=== PATIENT | female | born 1950 | race Caucasian/White ===

== ENCOUNTER 2018-12-12 17:22 | Inpatient (IN) | payer MEDICARE, MEDICAID ==
[~2018-12-12] VITALS: Ht 167.6 cm; Wt 63.0 kg
--- NOTE | 2018-12-12 17:45 | NUR ---
pt refuses ekg and cxr.
--- NOTE | 2018-12-12 17:45 | NUR ---
No information regarding current home medications received in transfer paperwork, pt unable to provide information.
--- NOTE | 2018-12-12 17:50 | NUR ---
pt agitated and yelling inspite of comfort measures provided.
[2018-12-12] MEDS ORDERED: OLANZAPINE 10 MG VIAL IM ONE ×2 (18:00→18:04)
--- NOTE | 2018-12-12 18:37 | NUR ---
pt transfered to [facility]. pt talking on the way going to [facility].
[2018-12-12] MEDS ORDERED: MAG HYDROX/AL HYDROX/SIMETH 30 ML LIQUID UDC PO PRN (19:45)
[2018-12-12] MEDS ORDERED: MAGNESIUM HYDROXIDE 30 ML LIQUID UDC PO PRN (19:45)
[2018-12-12] MEDS ORDERED: BLOOD SUGAR DIAGNOSTIC 1 EACH STRIP VI ONE (19:45)
[2018-12-12] MEDS ORDERED: LEVO25TA2 PO (20:19)
[2018-12-12] MEDS ORDERED: QUET25TA PO (20:19)
[2018-12-12] MEDS ORDERED: QUET100T PO (20:19)
[2018-12-12] MEDS ORDERED: HYDR-3326 PO (20:19)
[2018-12-12] MEDS ORDERED: ESCI5TAB PO (20:19)
[2018-12-12] MEDS ORDERED: LEVE500T9 PO (20:19)
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
[2018-12-13] MEDS ORDERED: HYDROCODONE/APAP 5-325MG TABLET PO SCH
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
[2018-12-13] MEDS ORDERED: OLANZAPINE 10 MG VIAL IM STA (04:30)
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
--- NOTE | 2018-12-13 04:45 | NUR ---
GPS: Zyprexa 10 mg given IM as ordered on right buttocks area and guero.well. Re-directed prn. Safe environment provided. Will continue to monitor behavior.
[2018-12-13 05:42] LABS: *BILIRUBIN,URIN NEGATIVE (NEGATIVE); *BLOOD, URINE NEGATIVE (NEGATIVE); *CLARITY,URINE CLEAR (CLEAR); *COLOR,URINE YELLOW (YELLOW); *KETONES,URINE TRACE (NEGATIVE); *UROBILINOGEN,URINE 0.2 E.U./dl (NORMAL); LEUKOCYTE ESTERASE ,URINE TRACE (NEGATIVE); NITRITE, URINE NEGATIVE (NEGATIVE); UGLUCOSE NEGATIVE (NEGATIVE)
[2018-12-13 05:46] LABS: RBC,URINE 0-3 /HPF (0-3)
[2018-12-13 05:47] LABS: BACTERIA,URINE FEW /HPF (NONE SEEN); SQUAMOUS EPITHELIAL CELL,UR MODERATE /HPF (NONE SEEN)
[2018-12-13] MEDS: LEVOTHYROXINE SODIUM 25 MCG TABLET PO SCH (06:34)
--- NOTE | 2018-12-13 06:42 | NUR ---
GPS: Pt.refused scheduled blood drawing this a.m. despite explanation of importance. Pt.is easily irritable when being encouraged. Will continue to re-direct prn.
[2018-12-13 07:56] VITALS: BP 108/73
[2018-12-13] MEDS ORDERED: diphenhydrAMINE 50 MG/1 ML VIAL IM ONE (08:45)
[2018-12-13] MEDS ORDERED: HALOPERIDOL LACTATE 5 MG/1 ML VIAL IM ONE (08:45)
--- NOTE | 2018-12-13 08:45 | NUR ---
GPS: Nursing Notes: Chemical Restraint: Patient is responding to her name, poor anger management, resistant with nursing care, verbal abusive toward the psychiatrist, posturing toward staff, strike out at staff, overly disruptive by shouting, screaming, restless behavior, unable to be redirected, Dr. Chery ordered: Haldol 5mg IM and Benadryl 25mg IM X1 STAT for severe agitated behavior, continue to monitor for safety, continue with treatment plan.
[2018-12-13] MEDS: LEVETIRACETAM 500 MG TABLET PO SCH ×3 (08:46→20:04)
--- NOTE | 2018-12-13 09:15 | NUR ---
GPS: Nursing Notes: Reassessment of Chemical Restraint: Patient became calm, but continue to be resistant with nursing care, following staff directions, medication IM's were effective, R=18, continue to monitor for safety, continue with treatment plan.
[2018-12-13] MEDS: LORAZEPAM 1 MG TABLET PO PRN ×2 (09:54→20:14)
[2018-12-13] MEDS: BENZTROPINE MESYLATE 0.5 MG TABLET PO SCH ×2 (13:00→17:00)
[2018-12-13] MEDS: HALOPERIDOL 2 MG TABLET PO SCH ×2 (13:00→17:00)
[2018-12-13] MEDS ORDERED: DEXTROSE 50% 50 ML DISP.SYRIN IV PRN (14:15)
--- NOTE | 2018-12-13 14:15 | NUR ---
Initial Discharge Note: Patient is a 67 year old female who currently resides at [facility] [[address] [place] [address] ]. Per Social Media Senior Associate Sofi, patient will not be welcomed back due to patient representing a danger to others. Per Sofi, [facility] will aid in finding another placement for this patient. Metal Tile Setter will continue to meet with patient, and collaborate with Cirilo on a safe and proper discharge.
[2018-12-13] MEDS: BLOOD SUGAR DIAGNOSTIC 1 EACH STRIP VI SCH ×2 (16:30→20:04)
[2018-12-13] MEDS: CEphaleXIN 500 MG CAPSULE PO SCH (17:00)
[2018-12-13 20:14] VITALS: BP 101/60
[2018-12-14] MEDS: BLOOD SUGAR DIAGNOSTIC 1 EACH STRIP VI SCH ×4 (06:42→21:00)
[2018-12-14] MEDS: LEVOTHYROXINE SODIUM 25 MCG TABLET PO SCH (06:42)
[2018-12-14] MEDS: LORAZEPAM 1 MG TABLET PO PRN (07:48)
[2018-12-14] MEDS: HALOPERIDOL 2 MG TABLET PO SCH ×3 (08:20→16:08)
[2018-12-14] MEDS: BENZTROPINE MESYLATE 0.5 MG TABLET PO SCH ×3 (08:21→16:08)
[2018-12-14] MEDS: LEVETIRACETAM 500 MG TABLET PO SCH ×2 (08:21→21:00)
[2018-12-14] MEDS: CEphaleXIN 500 MG CAPSULE PO SCH ×2 (08:21→16:07)
[2018-12-14] MEDS ORDERED: diphenhydrAMINE 50 MG/1 ML VIAL IM ONE (10:00)
[2018-12-14] MEDS ORDERED: HALOPERIDOL LACTATE 5 MG/1 ML VIAL IM ONE (10:00)
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
[2018-12-14] MEDS ORDERED: OLANZAPINE 10 MG VIAL IM ONE (16:30)
[2018-12-14] MEDS ORDERED: LORAZEPAM 2 MG/1 ML VIAL IM ONE (16:30)
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
--- NOTE | 2018-12-14 16:44 | NUR ---
PATIENT NOTED WITH AGGRESSION,AND COMBATIVE BEHAVIOR, TALKING LOUD IN THE HALLWAY, GRANDIOSE, NOT REFRACTABLE, CONTINUE WITH BEHAVIORS, CHARGE NURSE OBTAINED THE ORDER FROM DR ESTRADA, WITH ORDER TO GIVE ATIVAN 1MG AND ZYPREXA MG IM, ADMINISTERED, PATIENT TOLERATED WELL.
[2018-12-14] MEDS: CLONAZEPAM 0.5 MG TABLET PO SCH (17:27)
--- NOTE | 2018-12-14 22:00 | NUR ---
received to care, lying in bed, with eyes closed, refusing to interact, when engaged. she also refused vital signs, blood sugar check, and bedtime medications. as of 2200, she appears to be asleep. no distress noted. will continue to monitor closely.
--- NOTE | 2018-12-15 06:00 | NUR ---
slept 9 hours. continues to sleep. no distress noted.
[2018-12-15] MEDS ORDERED: chlorproMAZINE 50 MG/2 ML AMPUL IM STA (07:00)
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
[2018-12-15] MEDS: BLOOD SUGAR DIAGNOSTIC 1 EACH STRIP VI SCH ×4 (07:30→21:00)
[2018-12-15] MEDS: LEVOTHYROXINE SODIUM 25 MCG TABLET PO SCH (07:30)
--- NOTE | 2018-12-15 07:30 | NUR ---
appears to be asleep. report given to oncoming shift.
[2018-12-15] MEDS: CEphaleXIN 500 MG CAPSULE PO SCH ×3 (09:00→16:54)
[2018-12-15] MEDS: LEVETIRACETAM 500 MG TABLET PO SCH ×4 (09:00→23:55)
[2018-12-15] MEDS: CLONAZEPAM 0.5 MG TABLET PO SCH ×4 (09:00→16:55)
[2018-12-15] MEDS: BENZTROPINE MESYLATE 0.5 MG TABLET PO SCH ×4 (09:00→16:54)
[2018-12-15 09:59] VITALS: BP 97/66
--- NOTE | 2018-12-15 10:45 | NUR ---
Gps/Model Dresser- Patient awake, routine am meds. was re offered, , patient attempted to take meds. staring at the meds. cup, then suddenly claimed "i dont want to take any medicine from you" patient mubles speech was incoherent. Patient grabbed staff arm, starting to squeezed hard, instructed to let go of staff arm .Loud starting to talk incoherently.Will attempt to re -offer routine am medications. Continue to monitor behavior, safety emphasized.
[2018-12-15] MEDS ORDERED: HALOPERIDOL 2 MG TABLET PO SCH (13:00)
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
[2018-12-15] MEDS ORDERED: chlorproMAZINE 50 MG/2 ML AMPUL IM ONE ×2 (13:15→20:15)
[2018-12-15 16:13] VITALS: BP 106/69
[2018-12-15] MEDS: HALOPERIDOL 5 MG TABLET PO SCH (16:54)
--- NOTE | 2018-12-15 16:55 | NUR ---
Gps/Baker Bread- Yelling spells noted, gets loud, making some weird noise. She tend to covers her head , discouraged from doing so, pt. gets angry and irritable. Continue to monitor behavior. Patient continue to refused routine meds. re-offered couple of times, refused .
--- NOTE | 2018-12-15 17:07 | NUR ---
Gps/Admeasurer- Patient is not to have any roommate r/t her violent/aggressive behavior.Staff are well informed.
--- NOTE | 2018-12-15 18:28 | NUR ---
Gps/Can Tester Conitnue to monitor behavior, remains to have on and off yelling spells for no reasons, talking to herself.
[2018-12-15] MEDS ORDERED: diphenhydrAMINE 50 MG/1 ML VIAL IM ONE ×2 (20:15→20:45)
[2018-12-15] MEDS ORDERED: HALOPERIDOL LACTATE 5 MG/1 ML VIAL IM ONE (20:45)
[2018-12-15] MEDS ORDERED: LORAZEPAM 2 MG/1 ML VIAL IM ONE (20:45)
--- NOTE | 2018-12-15 23:00 | NUR ---
received to care, lying in bed, asleep, with covers over her head. she came out around 1999, yelling obscenities, and threatening staff. intrusive with peers, in their room. was difficult to redirect. she continued to escalate, to the point that she was posturing with fists, and making threats of violence. Dr Chery was paged, and she received an IM injection of haldol 5 mg/ ativan 2 mg/ benedryl 25 mg, at 2042. she was compliant with injection. she calmed down after about an hour, and now appears to be asleep. continues to yell out intermittently. will continue to monitor closely.
[2018-12-15] MEDS: LORAZEPAM 1 MG TABLET PO PRN (23:55)
--- NOTE | 2018-12-15 23:55 | NUR ---
pt refused all medications this evening. she is now awake, requesting "something to calm me down". she wa sgiven PRN ativan (PO), and her scheduled dose of keppra, which was due at 2100. will continue to monitor closely.
--- NOTE | 2018-12-16 00:45 | NUR ---
appears to be asleep. no distress noted.
[2018-12-16] MEDS: HYDROCODONE/APAP 5-325MG TABLET PO PRN (04:49)
--- NOTE | 2018-12-16 06:00 | NUR ---
slept 3.5 hours. continues to sleep intermittently.
--- NOTE | 2018-12-16 06:30 | NUR ---
is now yelling at desk. became aggressive, but was redirected back to room. currently talking to self.
[2018-12-16] MEDS: LEVOTHYROXINE SODIUM 25 MCG TABLET PO SCH (06:48)
[2018-12-16] MEDS: BLOOD SUGAR DIAGNOSTIC 1 EACH STRIP VI SCH ×4 (06:48→21:00)
[2018-12-16] MEDS: CEphaleXIN 500 MG CAPSULE PO SCH ×2 (08:21→17:00)
[2018-12-16] MEDS: LEVETIRACETAM 500 MG TABLET PO SCH ×2 (08:21→21:00)
[2018-12-16] MEDS: HALOPERIDOL 5 MG TABLET PO SCH ×3 (08:21→17:00)
[2018-12-16] MEDS: CLONAZEPAM 0.5 MG TABLET PO SCH ×3 (08:21→17:00)
[2018-12-16] MEDS: BENZTROPINE MESYLATE 0.5 MG TABLET PO SCH ×3 (08:22→17:00)
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
--- NOTE | 2018-12-16 15:07 | NUR ---
Discharge planning: Hearing Aid Specialist faxed updated patient clinicals to referring facility - [facility] [[address] [place] [address]; ] ATTN : Analysis Engineer Sofi as facility has agreed to find alternate placement for patient upon discharge.
--- NOTE | 2018-12-16 18:13 | NUR ---
Gps/Manager Food Safety- Occ. nuria noted coming from patient's room , speech confused incoherent, labile mood, appeared to be mad at some . Continue to monitor behavior.
--- NOTE | 2018-12-16 20:00 | NUR ---
RECEIVED PATIENT IN HER ROOM, SHE IS NOTED ASLEEP BUT EASILY AROUSABLE. SHE IS NOTED EASILY IRRITABLE, REFUSING TO ANSWER ANY QUESTION, SARCASTIC, AND VERBALLY ABUSIVE. SHE ALSO REFUSED V/S. SAFETY AND FALL PRECAUTION IN PLACE. WILL CONTINUE TO MONITOR.
--- NOTE | 2018-12-16 22:00 | NUR ---
PATIENT REFUSED ALL HER MEDICATIONS AND ACCUCHECK. SHE CONTINUE EASILY IRRITABLE AND RESPONDING TO INTERNAL STIMULI. WILL CONTINUE TO MONITOR CLOSELY.
--- NOTE | 2018-12-16 23:15 | NUR ---
PATIENT NOTED WALKING THE HALLWAY, SHE WAS OBSERVED TALKING TO HERSELF. AFTER A FEW MINUTES, SHE WENT BACK TO HER ROOM AND CONTINUE TALKING TO HERSELF. WILL CONTINUE TO MONITOR.
[2018-12-17] MEDS: LEVOTHYROXINE SODIUM 25 MCG TABLET PO SCH (07:13)
[2018-12-17] MEDS: BLOOD SUGAR DIAGNOSTIC 1 EACH STRIP VI SCH ×4 (07:13→21:00)
[2018-12-17] MEDS: CLONAZEPAM 0.5 MG TABLET PO SCH ×3 (09:00→17:00)
[2018-12-17] MEDS: HALOPERIDOL 5 MG TABLET PO SCH ×3 (09:00→17:00)
[2018-12-17] MEDS: CEphaleXIN 500 MG CAPSULE PO SCH ×2 (09:00→17:00)
[2018-12-17] MEDS: BENZTROPINE MESYLATE 0.5 MG TABLET PO SCH ×3 (09:00→17:00)
[2018-12-17] MEDS: LEVETIRACETAM 500 MG TABLET PO SCH ×2 (09:00→21:00)
[2018-12-17] MEDS ORDERED: HALOPERIDOL LACTATE 5 MG/1 ML VIAL IM STA (12:45)
[2018-12-17] MEDS ORDERED: BENZTROPINE MESYLATE 2 MG/2 ML AMPUL IM ONE (12:45)
[2018-12-17] MEDS ORDERED: BENZTROPINE MESYLATE 2 MG/2 ML AMPUL IM SCH (12:45)
[2018-12-17] MEDS ORDERED: LORAZEPAM 2 MG/1 ML VIAL IM ONE (12:45)
--- NOTE | 2018-12-17 13:00 | NUR ---
Gps/Crude Oil Driver-Loud, yelling, extremely agitated, speech incoherent, confused, disruptive behavior, violent behavior ,unable to contract for safety, spitting . Dr Cruz in to see patient, orders received.
--- NOTE | 2018-12-17 17:57 | NUR ---
Gps/Resource Management Planner- Patient had been quiet after receiving her PRN medications. Noted she covered her head from top to bottom w/ her blanket . Continue to monitor behavior.
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
--- NOTE | 2018-12-17 22:00 | NUR ---
PATIENT REFUSED ACCUCHECKS. REFUSED ALL HER QHS MEDICATIONS AND V/S. MULTIPLE REDIRECTION GIVEN. HOWEVER, INEFFECTIVE. SHE IS NOW IN HER ROOM, APPEARS TO BE ASLEEP. WILL CONTINUE TO MONITOR.
[2018-12-18] MEDS: LEVOTHYROXINE SODIUM 25 MCG TABLET PO SCH (07:30)
[2018-12-18] MEDS: BLOOD SUGAR DIAGNOSTIC 1 EACH STRIP VI SCH ×4 (07:30→20:14)
[2018-12-18] MEDS ORDERED: BENZTROPINE MESYLATE 2 MG/2 ML AMPUL IM ONE (08:30)
[2018-12-18] MEDS ORDERED: HALOPERIDOL LACTATE 5 MG/1 ML VIAL IM ONE (08:30)
[2018-12-18] MEDS ORDERED: LORAZEPAM 2 MG/1 ML VIAL IM ONE (08:30)
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
[2018-12-18] MEDS: HALOPERIDOL 5 MG TABLET PO SCH ×4 (09:00→17:00)
[2018-12-18] MEDS: CEphaleXIN 500 MG CAPSULE PO SCH ×2 (09:00→17:00)
[2018-12-18] MEDS: BENZTROPINE MESYLATE 0.5 MG TABLET PO SCH ×4 (09:00→17:00)
[2018-12-18] MEDS: CLONAZEPAM 0.5 MG TABLET PO SCH ×4 (09:00→17:00)
[2018-12-18] MEDS: LEVETIRACETAM 500 MG TABLET PO SCH ×2 (09:00→20:14)
--- NOTE | 2018-12-18 14:52 | NUR ---
Gps/Auto Bumper Straightener- Came out to the Nurses station asking to give her routine medications . she did not take earlier today.Administered routine meds. due this pm , meds. she originally refused .
[2018-12-18] MEDS: HYDROCODONE/APAP 5-325MG TABLET PO PRN (16:01)
--- NOTE | 2018-12-18 20:15 | NUR ---
GPS: Pt.refused bedtime meds.and accuchecks despite explanation of importance. Easily irritable when being persuaded. Safety emphasized. Will continue to monitor.
[2018-12-18] MEDS: LORAZEPAM 1 MG TABLET PO PRN (23:53)
--- NOTE | 2018-12-18 23:55 | NUR ---
GPS: Pt.awake at this time and starting to cry and yell. Pt.is talking to self and starting to get agitated. Ativan 1mg PO offered and taken. Re-directed prn.
[2018-12-19] MEDS: ZOLPIDEM 5 MG TABLET PO PRN (00:45)
--- NOTE | 2018-12-19 00:45 | NUR ---
GPS: Pt.still awake at this time and requested something to help her sleep and some snacks. Ambien 5mg given PO for insomnia. Will monitor effectiveness.
--- NOTE | 2018-12-19 01:58 | NUR ---
GPS: Asleep at this time. In no form of distress noted. Will continue to monitor.
[2018-12-19] MEDS: LORAZEPAM 1 MG TABLET PO PRN ×2 (05:56→13:29)
[2018-12-19] MEDS: BLOOD SUGAR DIAGNOSTIC 1 EACH STRIP VI SCH ×4 (06:33→21:00)
[2018-12-19] MEDS: LEVOTHYROXINE SODIUM 25 MCG TABLET PO SCH (06:33)
[2018-12-19] MEDS: CEphaleXIN 500 MG CAPSULE PO SCH (09:00)
[2018-12-19] MEDS: CLONAZEPAM 0.5 MG TABLET PO SCH ×3 (09:00→17:00)
[2018-12-19] MEDS: BENZTROPINE MESYLATE 0.5 MG TABLET PO SCH ×3 (09:00→17:00)
[2018-12-19] MEDS: LEVETIRACETAM 500 MG TABLET PO SCH ×3 (09:00→21:00)
[2018-12-19] MEDS: HALOPERIDOL 5 MG TABLET PO SCH ×3 (09:00→17:00)
--- NOTE | 2018-12-19 10:58 | NUR ---
Discharge Planning: Pharmacy Teacher contacted referring facility - [facility] [ [address] [place] [address]; ] and spoke with Sofi, Base Brander. This keno writer informed that filed Riese petition for patient this morning. Per Sofi, once patient is closer to discharge, they will assist with alternate placement for patient among their sister facilities.
[2018-12-19] MEDS ORDERED: diphenhydrAMINE 50 MG/1 ML VIAL IM ONE (12:00)
[2018-12-19] MEDS ORDERED: LORAZEPAM 2 MG/1 ML VIAL IM ONE (12:00)
[2018-12-19] MEDS ORDERED: HALOPERIDOL LACTATE 5 MG/1 ML VIAL IM ONE (12:00)
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
--- NOTE | 2018-12-19 12:36 | NUR ---
GPS: Nursing Notes: Reassessment of Chemical Restraint: Patient became calmed, less screaming, but gets easily irritable when redirected, continue to monitor for safety, medication IM's were effective, R=20, continue with treatment plan.
[2018-12-19] MEDS: HYDROCODONE/APAP 5-325MG TABLET PO PRN (13:55)
[2018-12-19 16:11] VITALS: BP 142/88
[2018-12-19] MEDS ORDERED: chlorproMAZINE 50 MG/2 ML AMPUL IM ONE (16:15)
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
--- NOTE | 2018-12-19 16:58 | NUR ---
GPS: Nursing Notes: Reassessment of Chemical Restraint: Patient is awake and responding to her name, patient became calm, less shouting, following staff directions, medication IM was effective, R=20, continue to monitor for safety, continue with treatment plan.
[2018-12-20] MEDS: LORAZEPAM 1 MG TABLET PO PRN ×2 (00:27→13:45)
[2018-12-20] MEDS: LEVETIRACETAM 500 MG TABLET PO SCH ×3 (00:27→21:00)
--- NOTE | 2018-12-20 00:27 | NUR ---
pt is now awake, and yelling to self. PRN ativan was given, along with her bedtime dose of keppra. continues to refuse vital signs. currently eating a snack in her room, quietly. will continue to monitor closely.
--- NOTE | 2018-12-20 01:30 | NUR ---
appears to be asleep.
[2018-12-20] MEDS: HYDROCODONE/APAP 5-325MG TABLET PO PRN ×3 (03:19→23:19)
--- NOTE | 2018-12-20 03:19 | NUR ---
pt is now yelling. she c/o lower back pain. PRN norco was given. will continue to monitor closely.
--- NOTE | 2018-12-20 04:30 | NUR ---
appears to be asleep.
--- NOTE | 2018-12-20 06:00 | NUR ---
slept 2.5 hours, total. continues to sleep. no distress noted.
[2018-12-20] MEDS: LEVOTHYROXINE SODIUM 25 MCG TABLET PO SCH (06:30)
[2018-12-20] MEDS: BLOOD SUGAR DIAGNOSTIC 1 EACH STRIP VI SCH ×4 (06:30→21:00)
--- NOTE | 2018-12-20 06:30 | NUR ---
continues to refuse accu checks. pt remains asymptomatic.
[2018-12-20 07:30] VITALS: BP 99/59
[2018-12-20] MEDS: CLONAZEPAM 0.5 MG TABLET PO SCH ×4 (09:00→16:43)
[2018-12-20] MEDS: BENZTROPINE MESYLATE 0.5 MG TABLET PO SCH ×4 (09:00→16:40)
[2018-12-20] MEDS: HALOPERIDOL 5 MG TABLET PO SCH ×4 (09:00→16:41)
--- NOTE | 2018-12-20 13:33 | NUR ---
Kaci hearing on 05/01/18 at 0930 am , Dr. Chery notified and aware.
--- NOTE | 2018-12-20 14:12 | NUR ---
FIREARMS REPORT: Final Inspector And Tester completed and submitted a [facility] firearms report for [address] Disability certification. A copy of report has been placed in patient chart.
--- NOTE | 2018-12-20 14:15 | NUR ---
FIREARMS REPORT: Director Of Events completed and submitted a [facility] firearms report for 5150 DTO certification. A copy of report has been placed in patient chart.
--- NOTE | 2018-12-20 22:00 | NUR ---
received to care, lying in bed, talking to self. refused all medications, including blood pressure check. as of 2200, she remains asleep, but talking intermittently. will continue to monitor closely.
[2018-12-20 22:19] VITALS: BP 113/74
[2018-12-20] MEDS: ZOLPIDEM 5 MG TABLET PO PRN (23:19)
--- NOTE | 2018-12-20 23:19 | NUR ---
pt is now agitated, and yelling at nurses station. PRN ale was given. she was redirected back to room.
[2018-12-21] MEDS: LORAZEPAM 1 MG TABLET PO PRN ×2 (00:17→20:45)
--- NOTE | 2018-12-21 00:17 | NUR ---
remains agitated and difficult to redirect. becomes verbally abusive, when engaged. PRN ativan was given. she went back to her room, after security arrived. will continue to monitor closely.
--- NOTE | 2018-12-21 01:30 | NUR ---
appears to be asleep, but yells out intermittently.
--- NOTE | 2018-12-21 05:40 | NUR ---
slept 4 hours, total. continues to sleep. no distress noted.
[2018-12-21] MEDS: BLOOD SUGAR DIAGNOSTIC 1 EACH STRIP VI SCH ×4 (06:57→20:16)
[2018-12-21] MEDS: LEVOTHYROXINE SODIUM 25 MCG TABLET PO SCH (06:57)
[2018-12-21 07:30] VITALS: BP 107/72
[2018-12-21] MEDS: CLONAZEPAM 0.5 MG TABLET PO SCH ×3 (08:30→16:13)
[2018-12-21] MEDS: LEVETIRACETAM 500 MG TABLET PO SCH ×2 (08:30→20:22)
[2018-12-21] MEDS: HALOPERIDOL 5 MG TABLET PO SCH ×3 (08:32→16:13)
[2018-12-21] MEDS: BENZTROPINE MESYLATE 0.5 MG TABLET PO SCH ×3 (08:32→16:13)
[2018-12-21] MEDS ORDERED: HALOPERIDOL LACTATE 5 MG/1 ML VIAL IM PRN (10:15)
[2018-12-21] MEDS ORDERED: diphenhydrAMINE 50 MG/1 ML VIAL IM PRN (10:15)
[2018-12-21] MEDS: INSULIN REGULAR, HUMAN 300 UNIT/3 ML VIAL SQ PRN ×2 (11:44→20:17)
[2018-12-21] MEDS: HYDROCODONE/APAP 5-325MG TABLET PO PRN ×2 (11:47→21:29)
[2018-12-21] MEDS: ACETAMINOPHEN 325 MG TABLET PO PRN (15:31)
--- NOTE | 2018-12-21 18:24 | NUR ---
ON REISE , TAKING HER ORAL MEDICATION, PATIENT COMPLIANT
--- NOTE | 2018-12-21 20:00 | NUR ---
RECEIVED PATIENT AMBULATING IN THE HALLWAY. AOX1-2. PATIENT CAN GET EASILY ANXIOUS AND AGITATED, BECOMES HYPERVERBAL AND VERBALLY ABUSIVE, ALTHOUGH COOPERATIVE WITH CARE. DENIES SI/HI. REFUSED VS. CONTINUE TO MONITOR.
[2018-12-21] MEDS: ZOLPIDEM 5 MG TABLET PO PRN (21:50)
[2018-12-22] MEDS: HYDROCODONE/APAP 5-325MG TABLET PO PRN ×2 (05:53→15:59)
[2018-12-22] MEDS: BLOOD SUGAR DIAGNOSTIC 1 EACH STRIP VI SCH ×4 (06:35→20:29)
[2018-12-22] MEDS: LEVOTHYROXINE SODIUM 25 MCG TABLET PO SCH (06:35)
--- NOTE | 2018-12-22 07:30 | NUR ---
RECIEVED LYING IN BED, SOUND ASLEEP. APPEARS CALM AND QUITE.
[2018-12-22 08:17] VITALS: BP 95/63
[2018-12-22] MEDS: INSULIN REGULAR, HUMAN 300 UNIT/3 ML VIAL SQ PRN ×3 (08:24→20:40)
[2018-12-22] MEDS: BENZTROPINE MESYLATE 0.5 MG TABLET PO SCH ×3 (08:26→17:40)
[2018-12-22] MEDS: HALOPERIDOL 5 MG TABLET PO SCH ×3 (08:26→17:40)
[2018-12-22] MEDS: LEVETIRACETAM 500 MG TABLET PO SCH ×2 (08:26→20:22)
[2018-12-22] MEDS: CLONAZEPAM 0.5 MG TABLET PO SCH ×3 (08:26→17:40)
--- NOTE | 2018-12-22 15:30 | NUR ---
PT IS COMPLAINING OF PAIN ON HER RIGHT THIGH LEVEL 7. MEDICATED WITH NORCO 5-325MG PO. PT IS ALSO YELLING IN THE APTEL WAY, VERY ANXIOUS . MEDICATED WITH ATIVAN 0.5MG PO ORDERED.
[2018-12-22] MEDS: ACETAMINOPHEN 325 MG TABLET PO PRN (16:00)
[2018-12-22] MEDS: LORAZEPAM 1 MG TABLET PO PRN ×2 (16:00→22:09)
[2018-12-22 16:21] VITALS: BP 105/69
--- NOTE | 2018-12-22 22:10 | NUR ---
GPS: Pt.is anxious at this time. Re-directed prn. Ativan 1mg PO was offered and accepted by pt. for anxiety. Pt.is more cooperative with her meds.and accuchecks tonight. No increased agitation noted. Safety emphasized.
[2018-12-22 22:16] VITALS: BP 106/66
[2018-12-23] MEDS: LEVOTHYROXINE SODIUM 25 MCG TABLET PO SCH (06:53)
[2018-12-23] MEDS: BLOOD SUGAR DIAGNOSTIC 1 EACH STRIP VI SCH ×4 (06:53→20:06)
[2018-12-23 07:30] VITALS: BP 102/69
[2018-12-23] MEDS: BENZTROPINE MESYLATE 0.5 MG TABLET PO SCH ×3 (08:34→17:22)
[2018-12-23] MEDS: LEVETIRACETAM 500 MG TABLET PO SCH ×2 (08:34→20:05)
[2018-12-23] MEDS: CLONAZEPAM 0.5 MG TABLET PO SCH ×3 (08:34→17:22)
[2018-12-23] MEDS: HALOPERIDOL 5 MG TABLET PO SCH ×5 (08:34→20:06)
--- NOTE | 2018-12-23 11:06 | NUR ---
Discharge Planning: qualified craft worker electrician faxed patient's referring packet to [facility] [[address] [place] [address]; ] ATTN: Sofi for assistance with securing alternate placement for patient. Per Sofi, Admissions at [facility] will not accept patient back as she is danger to others.
[2018-12-23] MEDS: INSULIN REGULAR, HUMAN 300 UNIT/3 ML VIAL SQ PRN (12:18)
[2018-12-23] MEDS: ACETAMINOPHEN 325 MG TABLET PO PRN (13:27)
[2018-12-23] MEDS: LORAZEPAM 1 MG TABLET PO PRN (13:27)
[2018-12-23 15:40] VITALS: BP 90/50
[2018-12-23] MEDS: HYDROCODONE/APAP 5-325MG TABLET PO PRN (18:46)
[2018-12-23 19:46] VITALS: BP 120/81
[2018-12-24] MEDS: LORAZEPAM 1 MG TABLET PO PRN ×2 (00:24→08:26)
[2018-12-24] MEDS: ZOLPIDEM 5 MG TABLET PO PRN (01:22)
[2018-12-24] MEDS: LEVOTHYROXINE SODIUM 25 MCG TABLET PO SCH (06:32)
[2018-12-24] MEDS: BLOOD SUGAR DIAGNOSTIC 1 EACH STRIP VI SCH ×4 (06:32→21:11)
[2018-12-24] MEDS: LEVETIRACETAM 500 MG TABLET PO SCH ×2 (08:44→21:11)
[2018-12-24] MEDS: HALOPERIDOL 5 MG TABLET PO SCH ×4 (08:44→21:10)
[2018-12-24] MEDS: BENZTROPINE MESYLATE 0.5 MG TABLET PO SCH ×3 (08:44→16:15)
[2018-12-24] MEDS: CLONAZEPAM 0.5 MG TABLET PO SCH ×3 (08:45→16:15)
[2018-12-24] MEDS: ACETAMINOPHEN 325 MG TABLET PO PRN ×2 (09:26→15:46)
[2018-12-24] MEDS: HYDROCODONE/APAP 5-325MG TABLET PO PRN ×2 (12:32→21:16)
[2018-12-24 15:42] VITALS: BP 95/64
[2018-12-24 20:29] VITALS: BP 92/69
[2018-12-24] MEDS: INSULIN REGULAR, HUMAN 300 UNIT/3 ML VIAL SQ PRN (21:12)
--- NOTE | 2018-12-25 05:45 | NUR ---
GPS: Remain calm and cooperative with meds and care. no agitation noted at this time. resting in her bed comfortably. continue plan of care.
[2018-12-25] MEDS: BLOOD SUGAR DIAGNOSTIC 1 EACH STRIP VI SCH ×4 (06:29→21:29)
--- NOTE | 2018-12-25 06:32 | NUR ---
SLEPT 7 HRS THROUGH THE NIGHT.
[2018-12-25] MEDS: LEVOTHYROXINE SODIUM 25 MCG TABLET PO SCH (06:48)
[2018-12-25] MEDS: CLONAZEPAM 0.5 MG TABLET PO SCH ×3 (08:37→16:45)
[2018-12-25] MEDS: ACETAMINOPHEN 325 MG TABLET PO PRN ×2 (08:37→16:19)
[2018-12-25] MEDS: LEVETIRACETAM 500 MG TABLET PO SCH ×2 (08:37→21:30)
[2018-12-25] MEDS: HALOPERIDOL 5 MG TABLET PO SCH ×4 (08:38→21:30)
[2018-12-25] MEDS: BENZTROPINE MESYLATE 0.5 MG TABLET PO SCH ×3 (08:38→16:45)
[2018-12-25] MEDS: INSULIN REGULAR, HUMAN 300 UNIT/3 ML VIAL SQ PRN ×3 (09:24→21:29)
[2018-12-25] MEDS: LORAZEPAM 1 MG TABLET PO PRN ×2 (10:24→16:19)
[2018-12-25] MEDS: HYDROCODONE/APAP 5-325MG TABLET PO PRN ×2 (10:24→22:14)
--- NOTE | 2018-12-25 15:26 | NUR ---
GPS: Nursing Notes: Destructive Behavior to Others: Patient is awake and responding to her name, poor anger management, demanding to give her Thorazine, but patient is on Haldol, patient believes that staff is lying to her, loud and pressured speech, verbal abusive toward staff, using racial statement toward staff, threatening staff, "Mother fucker.. I am going to kill.. You are lying bitch... Fucken Croatian..", redirected and reoriented during shift, but continue to be overly disruptive by shouting profanities toward staff, poor anger management, violent outburst without provocation, posturing toward staff, pointing her finger at staff and threatening staff, setting limits, but continue to be labile, unpredictable behavior, unable to formulate a viable plan for self care, continue with treatment plan.
--- NOTE | 2018-12-25 22:15 | NUR ---
PATIENT AWAKE IN BED, C/O PAIN IN RIGHT LEG. PATIENT GIVEN NORCO 1 TAB PO PRN FOR PAIN. WILL CONTINUE TO MONITOR AND ASSESS.
--- NOTE | 2018-12-25 23:20 | NUR ---
NORCO EFFECTIVE. PATIENT ASLEEP IN BED.
[2018-12-26] MEDS: BLOOD SUGAR DIAGNOSTIC 1 EACH STRIP VI SCH ×4 (06:49→21:00)
[2018-12-26] MEDS: LEVOTHYROXINE SODIUM 25 MCG TABLET PO SCH (06:49)
[2018-12-26] MEDS: BENZTROPINE MESYLATE 0.5 MG TABLET PO SCH (08:28)
[2018-12-26] MEDS: CLONAZEPAM 0.5 MG TABLET PO SCH ×3 (08:28→16:25)
[2018-12-26] MEDS: ACETAMINOPHEN 325 MG TABLET PO PRN (08:28)
[2018-12-26] MEDS: HALOPERIDOL 5 MG TABLET PO SCH (08:28)
[2018-12-26] MEDS: LEVETIRACETAM 500 MG TABLET PO SCH ×2 (08:28→21:39)
[2018-12-26] MEDS ORDERED: chlorproMAZINE 50 MG/2 ML AMPUL IM PRN (08:45)
[2018-12-26] MEDS ORDERED: HALOPERIDOL DECANOATE 50 MG/1 ML AMPUL IM SCH (09:00)
[2018-12-26] MEDS: chlorproMAZINE 25 MG TABLET PO SCH ×4 (09:33→21:38)
[2018-12-26 09:59] VITALS: BP 103/61
[2018-12-26] MEDS: HYDROCODONE/APAP 5-325MG TABLET PO PRN (13:18)
[2018-12-27] MEDS: HYDROCODONE/APAP 5-325MG TABLET PO PRN (01:18)
[2018-12-27] MEDS: LEVOTHYROXINE SODIUM 25 MCG TABLET PO SCH ×2 (06:35→08:22)
[2018-12-27] MEDS: BLOOD SUGAR DIAGNOSTIC 1 EACH STRIP VI SCH ×5 (06:35→20:24)
--- NOTE | 2018-12-27 06:36 | NUR ---
VS stable, Refused HS accu check, Pt is delusional and believes she is not diabetic. Pt remains unpredictable and episodically aggressive, responds to internal stimuli, and is preoccupied. Pt speaks and responds non-sensically and irrationally. Presents with poor insight and impaired judgement. Compliant with HS medications, but is suspicious and paranoid of staff. Pt awoke at approximately 0015 crying and c/o 10/10 generalized body pain. [place] 5/325 administered with good effect. Awoke at 0600 with and episode of yelling at the bin filler in the hallway, then went back to bed. Easily irritable and agitated, Pt kept the blanket over her head this morning and refused Accu check and Synthroid.
--- NOTE | 2018-12-27 06:42 | NUR ---
Pt reluctantly let other floor RN check her blood sugar-138.
[2018-12-27] MEDS: INSULIN REGULAR, HUMAN 300 UNIT/3 ML VIAL SQ PRN (07:27)
[2018-12-27 07:30] VITALS: BP 99/50
[2018-12-27] MEDS: LEVETIRACETAM 500 MG TABLET PO SCH ×2 (08:22→20:20)
[2018-12-27] MEDS: CLONAZEPAM 0.5 MG TABLET PO SCH ×3 (08:22→17:02)
[2018-12-27] MEDS: chlorproMAZINE 25 MG TABLET PO SCH ×4 (08:22→20:21)
[2018-12-27 15:16] VITALS: BP 105/76
[2018-12-27 20:11] VITALS: BP 102/63
--- NOTE | 2018-12-28 06:30 | NUR ---
GPS: Pt.refused scheduled accucheck and Synthroid pill despite explanation of importance. Pt.is easily agitated when approached and when being persuaded. Re-directed prn. Will continue to monitor behavior.
[2018-12-28] MEDS: BLOOD SUGAR DIAGNOSTIC 1 EACH STRIP VI SCH ×4 (06:33→20:16)
[2018-12-28] MEDS: LEVOTHYROXINE SODIUM 25 MCG TABLET PO SCH (06:33)
--- NOTE | 2018-12-28 06:46 | NUR ---
GPS: Refused scheduled blood drawing at this time despite explanation of risks vs benefits x3. Has poor insight to her illness. Will continue to monitor.
[2018-12-28] MEDS: LEVETIRACETAM 500 MG TABLET PO SCH ×3 (08:06→20:16)
[2018-12-28] MEDS: CLONAZEPAM 0.5 MG TABLET PO SCH ×4 (08:06→16:18)
[2018-12-28] MEDS: chlorproMAZINE 25 MG TABLET PO SCH ×5 (08:06→20:16)
--- NOTE | 2018-12-28 09:10 | NUR ---
patient refused all her po meds, patient threw all her midication on the floor,Thorazine IM administered
[2018-12-28] MEDS: ACETAMINOPHEN 325 MG TABLET PO PRN (10:03)
--- NOTE | 2018-12-28 12:26 | NUR ---
patient took her noon po meds
--- NOTE | 2018-12-28 12:26 | NUR ---
patient refused insulin despite explaining risks and benefits
--- NOTE | 2018-12-28 13:55 | NUR ---
paitent behaviour still remains unpredictable, patient offered morning meds, agreed to take then suddenly threw them away on the floor, followed by glass of water, difficult to redirect, Thorazine IM administered, effective, patient is in bed at this time, calm, no distress noted, no sob, resp even nonlabored, patient tolerated meals well, continue with plan of care, safety measures in place
[2018-12-28] MEDS: HYDROCODONE/APAP 5-325MG TABLET PO PRN (14:29)
[2018-12-28] MEDS: BENZTROPINE MESYLATE 0.5 MG TABLET PO PRN (15:57)
--- NOTE | 2018-12-28 17:30 | NUR ---
patient took her evening po medication, but refused insulin
[2018-12-28 19:53] VITALS: BP 104/55
[2018-12-29] MEDS: BLOOD SUGAR DIAGNOSTIC 1 EACH STRIP VI SCH ×2 (06:40→11:30)
[2018-12-29] MEDS: LEVOTHYROXINE SODIUM 25 MCG TABLET PO SCH ×2 (06:40→08:54)
[2018-12-29] MEDS: CLONAZEPAM 0.5 MG TABLET PO SCH ×2 (08:53→13:14)
[2018-12-29] MEDS: BENZTROPINE MESYLATE 0.5 MG TABLET PO PRN (08:53)
[2018-12-29] MEDS: chlorproMAZINE 25 MG TABLET PO SCH ×2 (08:53→13:14)
[2018-12-29] MEDS: LEVETIRACETAM 500 MG TABLET PO SCH (08:53)
--- NOTE | 2018-12-29 09:47 | NUR ---
Discharge Note: Patient will be discharged back to facility [facility] [[place] [address]; ]. Please arrange transportation for this patient by 1:00pm. Spoke with Omaira Alexandre Tech Intern, who states facility is ready to accept patient back. Patient is A&Ox3 and denies suicidal ideation. Patient aware and agreeable with discharge plan. Patients son Nathaniel Winkler [[phone]] was contacted several times without success unable to leave voicemail. Patient will follow up with Dr. Alka Sandoval, Dancing Master and Dr. Myron Torrez, Psychiatrist at [facility]. Patient was also provided with mental health resources including [facility] Crisis Line [ ] and the National Suicide Prevention Lifeline [ ].
[2018-12-29 09:49] VITALS: BP 93/54
--- NOTE | 2018-12-29 12:56 | NUR ---
1245 Called [facility], [facility] spoke GAYLE Eden and report given regarding patient medical and mental status. Patient alert and ox2, calm and compliant with her medication. denies SI/ HI. No delusion . No a/v hallucination noted. Waiting for ambulance to pick remover the patient.
--- NOTE | 2018-12-29 14:08 | NUR ---
7418 Patient discharged to [facility], correction via ambulance. Patient alert and ox 2, calm, compliant with medications. Patient denies SI /HI. No delusion . No a/v hallucination noted
== END 2018-12-29 14:00 | DRG 885 ==
LOC: ER 17:22 → GPS 18:34
PROVIDERS: ADMIT Psychiatry & Neurology Psychiatry; ATTEND Student in an Organized Health Care Education/Training Program
DX: F20.0 Paranoid schizophrenia (principal); E46 Unspecified protein-calorie malnutrition; E03.9 Hypothyroidism, unspecified; E11.9 Type 2 diabetes mellitus without complications; G40.909 Epilepsy, unspecified, not intractable, without status epilepticus; J44.9 Chronic obstructive pulmonary disease, unspecified; I10 Essential (primary) hypertension; Z79.899 Other long term (current) drug therapy
CPT/HCPCS: 87086; 93005; A4663; J0515; J1200; J1630; J1631; J1815; J2060; J2358; J3230; Q0161